=== PATIENT | female | born 1965 | race African-American/Black ===

== ENCOUNTER 2023-06-28 10:27 | Inpatient (IN) | payer OTHER ==
[2023-06-28 15:21] LABS: BASO % 0.5 % (0-2.0); HEMOGLOBIN 8.4 GM/dL (10.7-15.3); MCH 27.4 pg (25.7-33.7); MCHC 32.4 g/dl (32.0-36.0); MEAN CELL VOLUME 84.5 fl (80-96); MEAN PLT VOLUME 8.4 fl (7.5-11.1); MONO % 5.3 % (3.8-10.2); NEUT % 47.2 % (42.8-82.8); PLATELET COUNT 338 10^3/uL (134-434); RBC 3.08 M/mm3 (3.60-5.2); RDW 16.7 % (11.6-15.6); WHITE BLOOD COUNT 6.9 K/mm3 (4.0-10.0)
[2023-06-28 15:47] LABS: POTASSIUM 4.4 mmol/L (3.5-5.1)
[2023-06-28 15:50] LABS: ALBUMIN 3.3 g/dl (3.4-5.0); BLOOD UREA NITROGEN 12.1 mg/dL (7-18); CALCIUM 9.6 mg/dL (8.5-10.1); MAGNESIUM 1.8 mg/dL (1.8-2.4)
[2023-06-28 15:53] LABS: CREATININE 0.7 mg/dL (0.55-1.3)
[2023-06-28 15:55] LABS: BILIRUBIN,TOTAL 0.6 mg/dL (0.2-1); TOT PROT 8.8 g/dl (6.4-8.2)
[2023-06-28 18:04] LABS: EPI CELLS 2 /uL (0-25.1); HYALINE CASTS 9 /uL (0-3.1); PH,URINE 5.5 (5.0-8.0); URINE APPEARANCE TURBID; URINE BACTERIA >9,000 /uL (0-1359); URINE BILIRUBIN 1+ (NEGATIVE); URINE COLOR RED; URINE GLUCOSE (UA) NEGATIVE (NEGATIVE); URINE KETONE NEGATIVE (NEGATIVE); URINE LEUK ESTERASE 2+ (NEGATIVE); URINE NITRITE POSITIVE (NEGATIVE); URINE PROTEIN 1+ (NEGATIVE); URINE RBC 388 /uL (0-23.9); URINE WBC 3 /uL (0-25.8)
[2023-06-28] MEDS ORDERED: ACETAMINOPHEN 325 MG TABLET (FP) PO PRN (18:23)
[2023-06-28] MEDS ORDERED: CEFTRIAXONE 1 GM/50 ML BAG ONE (19:05)
[2023-06-28] MEDS ORDERED: MELATONIN 5 MG TABLETS ONE (22:56)
[2023-06-28] MEDS ORDERED: SENNOSIDES 8.6MG TABLET (FP) PO ONE (22:56)
[2023-06-28] MEDS ORDERED: FAMOTIDINE 20 MG TABLET ONE (22:56)
[2023-06-28] MEDS ORDERED: DULoxetine HCL 30 MG CAPSULE.DR PO ONE (22:57)
[2023-06-28] MEDS ORDERED: GABAPENTIN 300 MG CAPSULE ONE (22:57)
[2023-06-28] MEDS: FAMOTIDINE 20 MG TABLET PO SCH (23:11)
[2023-06-28] MEDS: VALPROIC ACID 250 MG CAPSULE PO SCH (23:11)
[2023-06-28] MEDS: DULoxetine HCL 30 MG CAPSULE.DR PO SCH (23:11)
[2023-06-28] MEDS: MELATONIN 5 MG TABLETS PO SCH (23:11)
[2023-06-28] MEDS: GABAPENTIN 300 MG CAPSULE PO SCH (23:11)
[2023-06-28] MEDS: SENNOSIDES 8.6MG TABLET (FP) PO SCH (23:12)
[2023-06-28] MEDS: LABETALOL HCL 200 MG TABLET (FP) PO SCH (23:12)
[2023-06-29] MEDS ORDERED: GABAPENTIN 300 MG CAPSULE ONE ×2 (05:44→22:28)
[2023-06-29 07:14] LABS: BASO % 0.3 % (0-2.0); HEMATOCRIT 25.3 % (32.4-45.2); LYMPH % 40.6 % (8-40); MCHC 31.7 g/dl (32.0-36.0); MEAN CELL VOLUME 85.2 fl (80-96); MEAN PLT VOLUME 8.7 fl (7.5-11.1); NEUT % 53.1 % (42.8-82.8); PLATELET COUNT 299 10^3/uL (134-434); RBC 2.97 M/mm3 (3.60-5.2); RDW 16.5 % (11.6-15.6); RETICULOCYTES 1.78 % (0.5-1.5); WHITE BLOOD COUNT 6.7 K/mm3 (4.0-10.0)
[2023-06-29 07:29] LABS: POTASSIUM 3.9 mmol/L (3.5-5.1)
[2023-06-29 07:33] LABS: CALCIUM 8.6 mg/dL (8.5-10.1)
[2023-06-29 07:34] LABS: ALBUMIN 2.9 g/dl (3.4-5.0); BLOOD UREA NITROGEN 12.2 mg/dL (7-18); MAGNESIUM 1.6 mg/dL (1.8-2.4)
[2023-06-29 07:36] LABS: CREATININE 0.7 mg/dL (0.55-1.3); PHOSPHOROUS 3.9 mg/dL (2.5-4.9)
[2023-06-29 07:38] LABS: BILIRUBIN,TOTAL 0.2 mg/dL (0.2-1); TOT PROT 7.9 g/dl (6.4-8.2)
[2023-06-29] MEDS: ASPIRIN 81 MG CHEWABLE TABLETS PO SCH (10:48)
[2023-06-29] MEDS: LOSARTAN POTASSIUM 25 MG TABLET PO SCH (10:49)
[2023-06-29] MEDS: amLODIPine BESYLATE 10 MG TABLET (FP) PO SCH (10:49)
[2023-06-29] MEDS: METHIMAZOLE 5 MG TABLET PO SCH (10:50)
[2023-06-29] MEDS: CALCIUM 500MG/VIT-D 200 UNITS COMBO TABLET (FP) PO SCH (10:50)
[2023-06-29] MEDS: POLYETHYLENE GLYCOL (HEALTHYLAX) 3350 17 GM PACKET PO SCH (10:51)
[2023-06-29] MEDS ORDERED: POLYETHYLENE GLYCOL (HEALTHYLAX) 3350 17 GM PACKET ONE (10:51)
[2023-06-29] MEDS: SELENIUM SULFIDE 2.25% 180 ML SHAMPOO TP SCH (12:39)
[2023-06-29] MEDS: SEVELAMER CARBONATE 800 MG TAB (FP) PO SCH (12:40)
[2023-06-29] MEDS ORDERED: CEFTRIAXONE 1 GM/50 ML BAG ONE (15:55)
[2023-06-29] MEDS: CEFTRIAXONE 1 GM in DEXTROSE 5%-WATER - 50 ML IVPB SCH (15:55)
[2023-06-29] MEDS ORDERED: SENNOSIDES 8.6MG TABLET (FP) PO ONE (22:27)
[2023-06-29] MEDS ORDERED: FAMOTIDINE 20 MG TABLET ONE (22:27)
[2023-06-29] MEDS ORDERED: LABETALOL HCL 200 MG TABLET (FP) ONE (22:28)
[2023-06-29] MEDS ORDERED: MELATONIN 5 MG TABLETS ONE (22:28)
[2023-06-29] MEDS ORDERED: DULoxetine HCL 30 MG CAPSULE.DR PO ONE (22:28)
[2023-06-29] MEDS ORDERED: DIVALPROEX SODIUM 250 MG TABLET E.C. ONE (22:28)
[2023-06-30 07:41] LABS: CHOLESTEROL 171 mg/dL (50-200)
[2023-06-30 07:42] LABS: LDL CHOLESTEROL (ONLY SJRH) 88 mg/dL (5-100)
[2023-06-30 07:52] LABS: HDL CHOLESTEROL 61 mg/dL (40-60)
[2023-06-30] MEDS: MAGNESIUM 2GM/50ML STERILE WATER IVPB IVPB ONE (09:36)
[2023-06-30 12:41] LABS: HEMATOCRIT 23.5 % (32.4-45.2); HEMOGLOBIN 7.6 GM/dL (10.7-15.3); MCH 27.1 pg (25.7-33.7); MCHC 32.4 g/dl (32.0-36.0); MEAN CELL VOLUME 83.7 fl (80-96); MEAN PLT VOLUME 8.7 fl (7.5-11.1); PLATELET COUNT 279 10^3/uL (134-434); RBC 2.81 M/mm3 (3.60-5.2); RDW 16.5 % (11.6-15.6); WHITE BLOOD COUNT 4.9 K/mm3 (4.0-10.0)
[2023-06-30 13:02] LABS: POTASSIUM 4.2 mmol/L (3.5-5.1)
[2023-06-30 13:04] LABS: CALCIUM 9.2 mg/dL (8.5-10.1)
[2023-06-30 13:05] LABS: ALBUMIN 2.9 g/dl (3.4-5.0)
[2023-06-30 13:08] LABS: CREATININE 0.7 mg/dL (0.55-1.3)
[2023-06-30 13:09] LABS: BILIRUBIN,TOTAL 0.2 mg/dL (0.2-1)
[2023-06-30 13:10] LABS: TOT PROT 7.8 g/dl (6.4-8.2)
[2023-06-30] MEDS ORDERED: ACETAMINOPHEN 325 MG TABLET (FP) PO PRN (21:00)
[2023-06-30] MEDS: DULoxetine HCL 30 MG CAPSULE.DR PO SCH (21:45)
[2023-06-30] MEDS: MELATONIN 5 MG TABLETS PO SCH (21:45)
[2023-06-30] MEDS: GABAPENTIN 300 MG CAPSULE PO SCH (21:45)
[2023-06-30] MEDS: LABETALOL HCL 200 MG TABLET (FP) PO SCH (21:46)
[2023-06-30] MEDS: FAMOTIDINE 20 MG TABLET PO SCH (21:46)
[2023-06-30] MEDS: SENNOSIDES 8.6MG TABLET (FP) PO SCH (21:46)
[2023-06-30] MEDS: VALPROIC ACID 250 MG CAPSULE PO SCH (22:15)
[2023-07-01] MEDS: SEVELAMER CARBONATE 800 MG TAB (FP) PO SCH (09:04)
[2023-07-01 09:57] LABS: HEMATOCRIT 23.7 % (32.4-45.2); HEMOGLOBIN 7.6 GM/dL (10.7-15.3); MCH 27.2 pg (25.7-33.7); MCHC 32.2 g/dl (32.0-36.0); MEAN CELL VOLUME 84.4 fl (80-96); MEAN PLT VOLUME 8.9 fl (7.5-11.1); PLATELET COUNT 246 10^3/uL (134-434); RBC 2.81 M/mm3 (3.60-5.2); RDW 16.4 % (11.6-15.6)
[2023-07-01 10:19] LABS: POTASSIUM 4.1 mmol/L (3.5-5.1)
[2023-07-01 10:34] LABS: CALCIUM 9.6 mg/dL (8.5-10.1)
[2023-07-01 10:38] LABS: CREATININE 0.8 mg/dL (0.55-1.3)
[2023-07-01 10:40] LABS: BILIRUBIN,TOTAL 0.4 mg/dL (0.2-1)
[2023-07-01] MEDS: POLYETHYLENE GLYCOL (HEALTHYLAX) 3350 17 GM PACKET PO SCH (11:28)
[2023-07-01] MEDS: METHIMAZOLE 5 MG TABLET PO SCH (11:29)
[2023-07-01] MEDS: LOSARTAN POTASSIUM 25 MG TABLET PO SCH (11:29)
[2023-07-01] MEDS: ASPIRIN 81 MG CHEWABLE TABLETS PO SCH (11:29)
[2023-07-01] MEDS: CALCIUM 500MG/VIT-D 200 UNITS COMBO TABLET (FP) PO SCH (11:29)
[2023-07-01] MEDS: amLODIPine BESYLATE 10 MG TABLET (FP) PO SCH (11:29)
[2023-07-01] MEDS: CEFTRIAXONE 1 GM in DEXTROSE 5%-WATER - 50 ML IVPB SCH (13:47)
[2023-07-02 10:08] LABS: HEMATOCRIT 22.6 % (32.4-45.2); HEMOGLOBIN 7.3 GM/dL (10.7-15.3); MCH 26.9 pg (25.7-33.7); MCHC 32.3 g/dl (32.0-36.0); MEAN CELL VOLUME 83.4 fl (80-96); MEAN PLT VOLUME 8.8 fl (7.5-11.1); PLATELET COUNT 224 10^3/uL (134-434); RBC 2.71 M/mm3 (3.60-5.2); RDW 16.8 % (11.6-15.6); WHITE BLOOD COUNT 4.6 K/mm3 (4.0-10.0)
[2023-07-02 10:20] LABS: BLOOD UREA NITROGEN 15.1 mg/dL (7-18); CALCIUM 8.7 mg/dL (8.5-10.1)
[2023-07-02 10:23] LABS: CREATININE 0.7 mg/dL (0.55-1.3)
[2023-07-03 07:50] LABS: HEMOGLOBIN 7.2 GM/dL (10.7-15.3); MCHC 32.9 g/dl (32.0-36.0); MEAN CELL VOLUME 85.3 fl (80-96); MEAN PLT VOLUME 8.9 fl (7.5-11.1); PLATELET COUNT 215 10^3/uL (134-434); RBC 2.58 M/mm3 (3.60-5.2); RDW 16.5 % (11.6-15.6)
[2023-07-03 08:10] LABS: BLOOD UREA NITROGEN 12.7 mg/dL (7-18); CALCIUM 8.6 mg/dL (8.5-10.1)
[2023-07-03 08:14] LABS: CREATININE 0.8 mg/dL (0.55-1.3)
[2023-07-03] MEDS ORDERED: BISACODYL 10 MG SUPP.RECT PR PRN (11:53)
[2023-07-03] MEDS: BISACODYL 10 MG SUPP.RECT PR ONE (17:28)
[2023-07-04 09:34] LABS: HEMATOCRIT 23.6 % (32.4-45.2); HEMOGLOBIN 7.6 GM/dL (10.7-15.3); MCH 27.5 pg (25.7-33.7); MCHC 32.1 g/dl (32.0-36.0); MEAN CELL VOLUME 85.5 fl (80-96); MEAN PLT VOLUME 9.3 fl (7.5-11.1); PLATELET COUNT 225 10^3/uL (134-434); RBC 2.76 M/mm3 (3.60-5.2); RDW 16.8 % (11.6-15.6); WHITE BLOOD COUNT 5.6 K/mm3 (4.0-10.0)
[2023-07-04] MEDS: LACTATED RINGERS SOLUTION 1,000 ML/1,000 ML INFUS.BAG IV SCH (09:39)
[2023-07-04 11:56] LABS: POTASSIUM 4.1 mmol/L (3.5-5.1)
[2023-07-04 11:59] LABS: BLOOD UREA NITROGEN 14.4 mg/dL (7-18)
[2023-07-04 12:02] LABS: CREATININE 0.8 mg/dL (0.55-1.3)
[2023-07-05] MEDS ORDERED: PROPOFOL 40 ML ONE (08:58)
[2023-07-05] MEDS: ceFAZolin SODIUM 1 GM VIAL IVPB ONE (09:09)
[2023-07-05] MEDS: IOHEXOL 300 MG/ML INFUS..BTL IV ONE ×2 (09:10)
[2023-07-05] MEDS ORDERED: ONDANSETRON 4 MG/2 ML VIAL IVPUSH PRN (09:26)
[2023-07-05] MEDS ORDERED: LACTATED RINGERS SOLUTION 1,000 ML IV SCH (09:30)
[2023-07-05] MEDS ORDERED: ACETAMINOPHEN 325 MG TABLET (FP) PO PRN (09:43)
[2023-07-05] MEDS ORDERED: BISACODYL 10 MG SUPP.RECT PR PRN (09:43)
[2023-07-05] MEDS: CEFTRIAXONE 1 GM in DEXTROSE 5%-WATER - 50 ML IVPB SCH (10:00)
[2023-07-05] MEDS: cefTRIAXone SODIUM 1 GM VIAL IVPB ONE (10:00)
[2023-07-05] MEDS ORDERED: CEFTRIAXONE 1 GM in DEXTROSE 5%-WATER - 50 ML IVPB SCH (10:00)
[2023-07-05] MEDS: LACTATED RINGERS SOLUTION 1,000 ML/1,000 ML INFUS.BAG IV SCH (10:40)
[2023-07-05] MEDS: LOSARTAN POTASSIUM 25 MG TABLET PO SCH (11:12)
[2023-07-05] MEDS: DULoxetine HCL 30 MG CAPSULE.DR PO SCH (11:12)
[2023-07-05] MEDS: CALCIUM 500MG/VIT-D 200 UNITS COMBO TABLET (FP) PO SCH (11:12)
[2023-07-05] MEDS: LABETALOL HCL 200 MG TABLET (FP) PO SCH (11:12)
[2023-07-05] MEDS: VALPROIC ACID 250 MG CAPSULE PO SCH (11:13)
[2023-07-05] MEDS: FAMOTIDINE 20 MG TABLET PO SCH (11:13)
[2023-07-05] MEDS: POLYETHYLENE GLYCOL (HEALTHYLAX) 3350 17 GM PACKET PO SCH (11:13)
[2023-07-05] MEDS: amLODIPine BESYLATE 10 MG TABLET (FP) PO SCH (11:13)
[2023-07-05] MEDS: SEVELAMER CARBONATE 800 MG TAB (FP) PO SCH (11:14)
[2023-07-05] MEDS: METHIMAZOLE 5 MG TABLET PO SCH (11:14)
[2023-07-05 12:00] LABS: HEMATOCRIT 23.8 % (32.4-45.2); HEMOGLOBIN 7.8 GM/dL (10.7-15.3); MCH 27.8 pg (25.7-33.7); MCHC 32.8 g/dl (32.0-36.0); MEAN CELL VOLUME 84.6 fl (80-96); MEAN PLT VOLUME 8.9 fl (7.5-11.1); PLATELET COUNT 225 10^3/uL (134-434); RBC 2.81 M/mm3 (3.60-5.2)
[2023-07-05 12:06] LABS: WHITE BLOOD COUNT 7.9 K/mm3 (4.0-10.0)
[2023-07-05 12:29] LABS: ANISOCYTOSIS 2+; MACROCYTOSIS 0
[2023-07-05 13:07] LABS: POTASSIUM 4.8 mmol/L (3.5-5.1)
[2023-07-05 13:09] LABS: BLOOD UREA NITROGEN 12.6 mg/dL (7-18); CALCIUM 9.3 mg/dL (8.5-10.1)
[2023-07-05 13:12] LABS: CREATININE 0.8 mg/dL (0.55-1.3)
[2023-07-05] MEDS: GABAPENTIN 300 MG CAPSULE PO SCH (14:14)
[2023-07-05] MEDS: MELATONIN 5 MG TABLETS PO SCH (22:04)
[2023-07-05] MEDS: SENNOSIDES 8.6MG TABLET (FP) PO SCH (22:04)
[2023-07-06 08:40] LABS: BASO % 0.1 % (0-2.0); HEMATOCRIT 22.6 % (32.4-45.2); HEMOGLOBIN 7.2 GM/dL (10.7-15.3); MCH 27.2 pg (25.7-33.7); MCHC 31.9 g/dl (32.0-36.0); MEAN CELL VOLUME 85.1 fl (80-96); MONO % 4.3 % (3.8-10.2); NEUT % 48.6 % (42.8-82.8); PLATELET COUNT 207 10^3/uL (134-434); RBC 2.66 M/mm3 (3.60-5.2); RDW 16.8 % (11.6-15.6); WHITE BLOOD COUNT 5.9 K/mm3 (4.0-10.0)
[2023-07-06 08:55] LABS: POTASSIUM 3.9 mmol/L (3.5-5.1)
[2023-07-06 09:00] LABS: ALBUMIN 3.1 g/dl (3.4-5.0)
[2023-07-06 09:01] LABS: BLOOD UREA NITROGEN 13.6 mg/dL (7-18); MAGNESIUM 1.8 mg/dL (1.8-2.4)
[2023-07-06 09:05] LABS: BILIRUBIN,TOTAL 0.2 mg/dL (0.2-1); CREATININE 0.7 mg/dL (0.55-1.3); TOT PROT 7.8 g/dl (6.4-8.2)
[2023-07-06] MEDS ORDERED: SELENIUM SULFIDE 2.25% 180 ML SHAMPOO TP SCH (10:00)
[2023-07-06] MEDS: ENOXAPARIN NA (PORCINE) 30 MG/0.3 ML DISP.SYRIN SQ SCH (10:56)
[2023-07-06] MEDS: PANTOPRAZOLE 40 MG TABLET PO SCH (10:57)
[2023-07-06] MEDS: ASPIRIN 81 MG CHEWABLE TABLETS PO SCH (10:57)
[2023-07-06] MEDS: SODIUM CHLORIDE 1,000 ML IV STA (16:01)
[2023-07-06] MEDS: CEFUROXIME AXETIL 500 MG TABLET PO SCH (16:02)
[2023-07-06] MEDS: FERROUS SO4 325 MG TABLET (FP) PO SCH (16:02)
[2023-07-06 16:27] LABS: BASO % 0.3 % (0-2.0); HEMATOCRIT 21.6 % (32.4-45.2); LYMPH % 53.2 % (8-40); MCH 27.7 pg (25.7-33.7); MCHC 32.5 g/dl (32.0-36.0); MEAN CELL VOLUME 85.2 fl (80-96); MEAN PLT VOLUME 8.8 fl (7.5-11.1); MONO % 6.6 % (3.8-10.2); NEUT % 39.9 % (42.8-82.8); PLATELET COUNT 199 10^3/uL (134-434); RBC 2.54 M/mm3 (3.60-5.2); RDW 16.7 % (11.6-15.6)
[2023-07-06] MEDS: SELENIUM SULFIDE 2.25% 180 ML SHAMPOO TP SCH (17:23)
[2023-07-07 10:18] LABS: BASO % 0.1 % (0-2.0); HEMATOCRIT 22.3 % (32.4-45.2); HEMOGLOBIN 7.1 GM/dL (10.7-15.3); LYMPH % 53.8 % (8-40); MCH 27.4 pg (25.7-33.7); MEAN CELL VOLUME 85.8 fl (80-96); MONO % 7.2 % (3.8-10.2); NEUT % 38.9 % (42.8-82.8); PLATELET COUNT 158 10^3/uL (134-434); RDW 17.1 % (11.6-15.6); WHITE BLOOD COUNT 5.6 K/mm3 (4.0-10.0)
[2023-07-07 10:31] LABS: POTASSIUM 3.8 mmol/L (3.5-5.1)
[2023-07-07 10:42] LABS: BLOOD UREA NITROGEN 11.6 mg/dL (7-18); MAGNESIUM 1.6 mg/dL (1.8-2.4)
[2023-07-07 10:45] LABS: CREATININE 0.7 mg/dL (0.55-1.3)
[2023-07-07 10:46] LABS: BILIRUBIN,TOTAL 0.2 mg/dL (0.2-1); TOT PROT 7.4 g/dl (6.4-8.2)
[2023-07-07] MEDS ORDERED: DEXTROSE 50%-WATER 25 GM/50 ML DISP.SYRIN ONE (10:46)
[2023-07-07] MEDS ORDERED: DEXTROSE 50%-WATER - 25 GM/50 ML VIAL IVPUSH ONE (11:00)
[2023-07-07 11:29] LABS: ARTERIAL BLD GAS O2 SATURATION 98.8 % (95-98); ARTERIAL BLOOD GAS BASE EXCESS 4.7 mmol/L (-2-2); ARTERIAL BLOOD GAS pH 7.452 (7.350-7.450)
[2023-07-07 11:30] LABS: ALLENS TEST POSITIVE
[2023-07-07] MEDS: MAGNESIUM SULFATE IN WATER 2 GM/50 ML IVPB IVPB ONE (12:58)
[2023-07-07] MEDS: ENOXAPARIN NA (PORCINE) 40 MG/0.4 ML DISP.SYRIN SQ SCH (14:08)
[2023-07-07] MEDS: ATORVASTATIN CA 80 MG TABLET (FP) PO ONE (14:09)
[2023-07-07] MEDS ORDERED: BISACODYL 10 MG SUPP.RECT PR PRN (15:22)
[2023-07-07] MEDS: LACTATED RINGERS SOLUTION 1,000 ML/1,000 ML INFUS.BAG IV SCH (18:08)
[2023-07-07] MEDS: levETIRAcetam 500 MG/5 ML INJECTION VIAL IVPB ONE (18:09)
[2023-07-07] MEDS: SEVELAMER CARBONATE 800 MG TAB (FP) PO SCH (18:09)
[2023-07-07] MEDS: MELATONIN 5 MG TABLETS PO SCH (21:51)
[2023-07-07] MEDS: LABETALOL HCL 200 MG TABLET (FP) PO SCH (21:51)
[2023-07-07] MEDS: SENNOSIDES 8.6MG TABLET (FP) PO SCH (21:51)
[2023-07-07] MEDS: DULoxetine HCL 30 MG CAPSULE.DR PO SCH (21:51)
[2023-07-07] MEDS: FAMOTIDINE 20 MG TABLET PO SCH (21:51)
[2023-07-07] MEDS: GABAPENTIN 300 MG CAPSULE PO SCH (21:52)
[2023-07-07] MEDS ORDERED: VALPROIC ACID 250 MG CAPSULE PO SCH (22:00)
[2023-07-07] MEDS ORDERED: ATORVASTATIN CA 80 MG TABLET (FP) PO SCH (22:00)
[2023-07-07 22:30] LABS: COCAINE, UR NEGATIVE (NEGATIVE); METHADONE, UR NEGATIVE (NEGATIVE); OPIATES, URI NEGATIVE (NEGATIVE); PHENCYCLIDINE,URINE NEGATIVE (NEGATIVE); URINE BENZODIAZEPINES NEGATIVE (NEGATIVE)
[2023-07-07 22:32] LABS: URINE AMPHETAMINES NEGATIVE (NEGATIVE); URINE BARBITURATES NEGATIVE (NEGATIVE)
[2023-07-08] MEDS: LOSARTAN POTASSIUM 25 MG TABLET PO SCH (10:09)
[2023-07-08] MEDS: amLODIPine BESYLATE 10 MG TABLET (FP) PO SCH (10:09)
[2023-07-08] MEDS: ASPIRIN 81 MG CHEWABLE TABLETS PO SCH (10:09)
[2023-07-08] MEDS: METHIMAZOLE 5 MG TABLET PO SCH (10:09)
[2023-07-08] MEDS: levETIRAcetam 250 MG TABLET PO SCH (10:09)
[2023-07-08] MEDS: FERROUS SO4 325 MG TABLET (FP) PO SCH (10:10)
[2023-07-08] MEDS: PANTOPRAZOLE 40 MG TABLET PO SCH (10:10)
[2023-07-08] MEDS: CALCIUM 500MG/VIT-D 200 UNITS COMBO TABLET (FP) PO SCH (10:10)
[2023-07-08 10:20] LABS: POTASSIUM 4.1 mmol/L (3.5-5.1)
[2023-07-08 10:28] LABS: BLOOD UREA NITROGEN 11.6 mg/dL (7-18); CALCIUM 9.6 mg/dL (8.5-10.1); MAGNESIUM 1.9 mg/dL (1.8-2.4)
[2023-07-08 10:29] LABS: BILIRUBIN,TOTAL 0.2 mg/dL (0.2-1)
[2023-07-08 10:30] LABS: BASO % 0.4 % (0-2.0); HEMATOCRIT 23.4 % (32.4-45.2); HEMOGLOBIN 7.6 GM/dL (10.7-15.3); LYMPH % 24.4 % (8-40); MCH 27.7 pg (25.7-33.7); MCHC 32.4 g/dl (32.0-36.0); MEAN CELL VOLUME 85.5 fl (80-96); MONO % 7.1 % (3.8-10.2); NEUT % 68.1 % (42.8-82.8); PLATELET COUNT 173 10^3/uL (134-434); RBC 2.74 M/mm3 (3.60-5.2); RDW 16.7 % (11.6-15.6); TOT PROT 7.5 g/dl (6.4-8.2); WHITE BLOOD COUNT 7.3 K/mm3 (4.0-10.0)
[2023-07-08 11:14] LABS: PLATELET ESTIMATE ADEQUATE
[2023-07-08] MEDS: POLYETHYLENE GLYCOL (HEALTHYLAX) 3350 17 GM PACKET PO SCH (13:00)
[2023-07-08] MEDS: ATORVASTATIN CA 40 MG TABLET (FP) PO SCH (21:48)
[2023-07-09 08:37] LABS: BASO % 0.4 % (0-2.0); HEMATOCRIT 22.6 % (32.4-45.2); HEMOGLOBIN 7.3 GM/dL (10.7-15.3); LYMPH % 50.9 % (8-40); MCH 27.6 pg (25.7-33.7); MCHC 32.3 g/dl (32.0-36.0); MEAN CELL VOLUME 85.3 fl (80-96); MEAN PLT VOLUME 9.2 fl (7.5-11.1); MONO % 8.3 % (3.8-10.2); NEUT % 40.4 % (42.8-82.8); PLATELET COUNT 194 10^3/uL (134-434); RBC 2.64 M/mm3 (3.60-5.2); RDW 17.2 % (11.6-15.6); WHITE BLOOD COUNT 6.4 K/mm3 (4.0-10.0)
[2023-07-09 09:01] LABS: POTASSIUM 3.6 mmol/L (3.5-5.1)
[2023-07-09 09:06] LABS: ALBUMIN 2.7 g/dl (3.4-5.0); BLOOD UREA NITROGEN 13.5 mg/dL (7-18); CALCIUM 8.9 mg/dL (8.5-10.1); MAGNESIUM 2.1 mg/dL (1.8-2.4)
[2023-07-09 09:09] LABS: CREATININE 1.5 mg/dL (0.55-1.3)
[2023-07-09 09:10] LABS: BILIRUBIN,TOTAL 0.4 mg/dL (0.2-1)
[2023-07-09] MEDS: GABAPENTIN 300 MG CAPSULE PO SCH (11:21)
[2023-07-09 21:23] LABS: URINE APPEARANCE CLOUDY; URINE BILIRUBIN 1+ (NEGATIVE); URINE COLOR RED; URINE GLUCOSE (UA) NEGATIVE (NEGATIVE); URINE KETONE NEGATIVE (NEGATIVE); URINE LEUK ESTERASE 2+ (NEGATIVE); URINE NITRITE POSITIVE (NEGATIVE); URINE PROTEIN 3+ (NEGATIVE); URINE UROBILINOGEN 0.2 mg/dL (0.2-1.0)
[2023-07-09 22:45] LABS: URINE WBC NONE SEEN /uL (0-25.8)
[2023-07-09 22:48] LABS: EPI CELLS NONE SEEN /uL (0-25.1); HYALINE CASTS NONE SEEN /uL (0-3.1); URINE BACTERIA NONE SEEN /uL (0-1359)
[2023-07-10 08:26] LABS: BASO % 0.2 % (0-2.0); HEMATOCRIT 17.3 % (32.4-45.2); LYMPH % 55.5 % (8-40); MCH 27.3 pg (25.7-33.7); MCHC 32.4 g/dl (32.0-36.0); MEAN CELL VOLUME 84.3 fl (80-96); MEAN PLT VOLUME 9.2 fl (7.5-11.1); MONO % 6.9 % (3.8-10.2); NEUT % 37.4 % (42.8-82.8); PLATELET COUNT 158 10^3/uL (134-434); RBC 2.05 M/mm3 (3.60-5.2); RDW 16.8 % (11.6-15.6); WHITE BLOOD COUNT 5.4 K/mm3 (4.0-10.0)
[2023-07-10 08:50] LABS: HEMOGLOBIN 5.6 GM/dL (10.7-15.3)
[2023-07-10] MEDS: MAGNESIUM OXIDE 400 MG TABLET (FP) PO ONE (10:04)
[2023-07-10 10:32] LABS: BASO % 0.2 % (0-2.0); HEMATOCRIT 18.1 % (32.4-45.2); LYMPH % 48.8 % (8-40); MCH 27.7 pg (25.7-33.7); MCHC 32.3 g/dl (32.0-36.0); MEAN CELL VOLUME 85.8 fl (80-96); MEAN PLT VOLUME 9.3 fl (7.5-11.1); MONO % 7.8 % (3.8-10.2); NEUT % 43.2 % (42.8-82.8); PLATELET COUNT 170 10^3/uL (134-434); RBC 2.11 M/mm3 (3.60-5.2); RDW 16.7 % (11.6-15.6); WHITE BLOOD COUNT 5.1 K/mm3 (4.0-10.0)
[2023-07-10 10:39] LABS: HEMOGLOBIN 5.8 GM/dL (10.7-15.3)
[2023-07-10] MEDS: LACTATED RINGERS SOLUTION 1,000 ML/1,000 ML INFUS.BAG IV STA (12:06)
[2023-07-10] MEDS: PANTOPRAZOLE SODIUM 40 MG VIAL IVPUSH SCH (12:36)
[2023-07-10] MEDS: LACTATED RINGERS SOLUTION 1,000 ML/1,000 ML INFUS.BAG IV SCH (17:59)
[2023-07-10 21:05] LABS: BASO % 0.2 % (0-2.0); EOS % 0.1 % (0-4.5); HEMOGLOBIN 8.6 GM/dL (10.7-15.3); LYMPH % 42.5 % (8-40); MCH 28.2 pg (25.7-33.7); MCHC 32.6 g/dl (32.0-36.0); MEAN CELL VOLUME 86.3 fl (80-96); MEAN PLT VOLUME 8.8 fl (7.5-11.1); NEUT % 47.2 % (42.8-82.8); PLATELET COUNT 154 10^3/uL (134-434); RBC 3.05 M/mm3 (3.60-5.2); RDW 15.5 % (11.6-15.6); WHITE BLOOD COUNT 7.1 K/mm3 (4.0-10.0)
[2023-07-10 21:16] LABS: HEMATOCRIT 26.3 % (32.4-45.2)
[2023-07-11 07:42] LABS: POTASSIUM 3.8 mmol/L (3.5-5.1)
[2023-07-11 07:48] LABS: BASO % 0.1 % (0-2.0); HEMATOCRIT 22.6 % (32.4-45.2); HEMOGLOBIN 7.5 GM/dL (10.7-15.3); LYMPH % 51.2 % (8-40); MCH 28.2 pg (25.7-33.7); MCHC 33.2 g/dl (32.0-36.0); MEAN CELL VOLUME 84.8 fl (80-96); MEAN PLT VOLUME 9.2 fl (7.5-11.1); MONO % 7.8 % (3.8-10.2); NEUT % 40.9 % (42.8-82.8); PLATELET COUNT 152 10^3/uL (134-434); RBC 2.66 M/mm3 (3.60-5.2); RDW 15.3 % (11.6-15.6); WHITE BLOOD COUNT 5.3 K/mm3 (4.0-10.0)
[2023-07-11 07:56] LABS: BLOOD UREA NITROGEN 10.9 mg/dL (7-18)
[2023-07-11 07:57] LABS: ALBUMIN 2.9 g/dl (3.4-5.0); MAGNESIUM 1.6 mg/dL (1.8-2.4)
[2023-07-11 07:59] LABS: CREATININE 0.9 mg/dL (0.55-1.3)
[2023-07-11 08:01] LABS: BILIRUBIN,TOTAL 0.6 mg/dL (0.2-1); TOT PROT 6.9 g/dl (6.4-8.2)
[2023-07-11] MEDS: LACTATED RINGERS SOLUTION 1,000 ML/1,000 ML INFUS.BAG IV SCH (09:24)
[2023-07-11] MEDS: CEFTRIAXONE 1 GM in DEXTROSE 5%-WATER - 50 ML IVPB ONE (10:18)
[2023-07-11] MEDS: PIPERACILLIN/TAZOB 2.25 GM 2.25 GM in DEXTROSE 5%-WATER - 50 ML IVPB SCH ×2 (13:00)
[2023-07-11 13:13] LABS: BASO % 0.1 % (0-2.0); HEMATOCRIT 23.3 % (32.4-45.2); HEMOGLOBIN 7.8 GM/dL (10.7-15.3); LYMPH % 37.8 % (8-40); MCH 28.8 pg (25.7-33.7); MCHC 33.6 g/dl (32.0-36.0); MEAN CELL VOLUME 85.5 fl (80-96); MONO % 8.4 % (3.8-10.2); NEUT % 53.7 % (42.8-82.8); PLATELET COUNT 153 10^3/uL (134-434); RBC 2.73 M/mm3 (3.60-5.2); RDW 15.4 % (11.6-15.6); WHITE BLOOD COUNT 5.5 K/mm3 (4.0-10.0)
[2023-07-11] MEDS: MAGNESIUM SULFATE IN WATER 2 GM/50 ML IVPB IVPB ONE (14:50)
[2023-07-11] MEDS ORDERED: PIPERACILLIN/TAZOB 3.375 GM 3.375 GM in DEXTROSE 5%-WATER - 50 ML IVPB SCH ×2 (15:00→15:30)
[2023-07-11] MEDS: PIPERACILLIN/TAZOB 3.375 GM 3.375 GM in DEXTROSE 5%-WATER - 50 ML IVPB SCH ×2 (16:08→17:34)
[2023-07-11] MEDS: GABAPENTIN 300 MG CAPSULE PO ONE (21:23)
[2023-07-12 09:28] LABS: BASO % 0.3 % (0-2.0); HEMATOCRIT 23.6 % (32.4-45.2); HEMOGLOBIN 7.9 GM/dL (10.7-15.3); LYMPH % 32.2 % (8-40); MCH 28.6 pg (25.7-33.7); MCHC 33.5 g/dl (32.0-36.0); MEAN CELL VOLUME 85.5 fl (80-96); MEAN PLT VOLUME 8.9 fl (7.5-11.1); MONO % 8.1 % (3.8-10.2); NEUT % 59.4 % (42.8-82.8); PLATELET COUNT 172 10^3/uL (134-434); RBC 2.76 M/mm3 (3.60-5.2); RDW 15.1 % (11.6-15.6); WHITE BLOOD COUNT 5.9 K/mm3 (4.0-10.0)
[2023-07-12 09:47] LABS: POTASSIUM 3.8 mmol/L (3.5-5.1)
[2023-07-12 09:49] LABS: ALBUMIN 2.9 g/dl (3.4-5.0); CALCIUM 8.6 mg/dL (8.5-10.1)
[2023-07-12 09:50] LABS: BLOOD UREA NITROGEN 11.8 mg/dL (7-18); MAGNESIUM 2.3 mg/dL (1.8-2.4)
[2023-07-12 09:53] LABS: CREATININE 1.1 mg/dL (0.55-1.3)
[2023-07-12 09:54] LABS: BILIRUBIN,TOTAL 0.5 mg/dL (0.2-1); TOT PROT 7.2 g/dl (6.4-8.2)
[2023-07-12] MEDS: GABAPENTIN 100 MG CAPSULE PO SCH (09:58)
[2023-07-12] MEDS: LINEZOLID 600 MG PREMIX BAG 600 MG in PREMIX 300 IVPB SCH (16:30)
[2023-07-12] MEDS: LINEZOLID 600 MG PREMIX BAG 600 MG/300 ML BAG IVPB SCH ×2 (16:31)
[2023-07-12] MEDS: DAPTOMYCIN 500 MG in SODIUM CHLORIDE 50 ML IVPB SCH (17:42)
[2023-07-13] MEDS: LACTATED RINGERS SOLUTION 1,000 ML/1,000 ML INFUS.BAG IV SCH (09:15)
[2023-07-13 09:55] LABS: BASO % 0.3 % (0-2.0); HEMATOCRIT 20.6 % (32.4-45.2); LYMPH % 49.6 % (8-40); MCH 28.4 pg (25.7-33.7); MCHC 32.9 g/dl (32.0-36.0); MEAN CELL VOLUME 86.2 fl (80-96); NEUT % 42.1 % (42.8-82.8); PLATELET COUNT 183 10^3/uL (134-434); RBC 2.39 M/mm3 (3.60-5.2); RDW 15.3 % (11.6-15.6); WHITE BLOOD COUNT 4.7 K/mm3 (4.0-10.0)
[2023-07-13 10:06] LABS: HEMOGLOBIN 6.8 GM/dL (10.7-15.3)
[2023-07-13 10:20] LABS: POTASSIUM 3.7 mmol/L (3.5-5.1)
[2023-07-13 10:22] LABS: CALCIUM 8.4 mg/dL (8.5-10.1)
[2023-07-13 10:23] LABS: BLOOD UREA NITROGEN 10.7 mg/dL (7-18)
[2023-07-13] MEDS: FUROSEMIDE 40 MG/4 ML INJECTABLE VIAL IVPUSH ONE (10:44)
[2023-07-13] MEDS: SELENIUM SULFIDE 2.25% 180 ML SHAMPOO TP SCH (13:09)
[2023-07-13 20:53] LABS: HEMOGLOBIN 8.6 GM/dL (10.7-15.3); MCH 28.9 pg (25.7-33.7); MCHC 33.8 g/dl (32.0-36.0); MEAN CELL VOLUME 85.5 fl (80-96); MEAN PLT VOLUME 8.6 fl (7.5-11.1); PLATELET COUNT 207 10^3/uL (134-434); RBC 2.97 M/mm3 (3.60-5.2); RDW 15.4 % (11.6-15.6); WHITE BLOOD COUNT 5.7 K/mm3 (4.0-10.0)
[2023-07-13 21:05] LABS: HEMATOCRIT 25.4 % (32.4-45.2)
[2023-07-14 08:13] LABS: BASO % 0.3 % (0-2.0); HEMATOCRIT 28.6 % (32.4-45.2); HEMOGLOBIN 9.5 GM/dL (10.7-15.3); LYMPH % 52.5 % (8-40); MCH 28.5 pg (25.7-33.7); MCHC 33.1 g/dl (32.0-36.0); MEAN CELL VOLUME 86.1 fl (80-96); MEAN PLT VOLUME 9.1 fl (7.5-11.1); MONO % 9.8 % (3.8-10.2); NEUT % 37.4 % (42.8-82.8); PLATELET COUNT 192 10^3/uL (134-434); RBC 3.33 M/mm3 (3.60-5.2); RDW 14.6 % (11.6-15.6); WHITE BLOOD COUNT 6.5 K/mm3 (4.0-10.0)
[2023-07-14 08:26] LABS: POTASSIUM 3.7 mmol/L (3.5-5.1)
[2023-07-14 08:28] LABS: CALCIUM 8.9 mg/dL (8.5-10.1)
[2023-07-14 08:29] LABS: BLOOD UREA NITROGEN 9.7 mg/dL (7-18)
[2023-07-14 08:32] LABS: CREATININE 0.9 mg/dL (0.55-1.3)
[2023-07-14] MEDS: PANTOPRAZOLE SODIUM 40 MG VIAL IVPUSH SCH (10:41)
[2023-07-15 07:42] LABS: POTASSIUM 3.6 mmol/L (3.5-5.1)
[2023-07-15 07:54] LABS: BASO % 0.1 % (0-2.0); HEMATOCRIT 26.6 % (32.4-45.2); HEMOGLOBIN 8.9 GM/dL (10.7-15.3); LYMPH % 47.5 % (8-40); MCH 28.7 pg (25.7-33.7); MCHC 33.5 g/dl (32.0-36.0); MEAN CELL VOLUME 85.8 fl (80-96); MEAN PLT VOLUME 9.2 fl (7.5-11.1); NEUT % 44.4 % (42.8-82.8); PLATELET COUNT 199 10^3/uL (134-434); RDW 14.6 % (11.6-15.6)
[2023-07-15 08:05] LABS: CALCIUM 8.9 mg/dL (8.5-10.1)
[2023-07-15 08:06] LABS: BLOOD UREA NITROGEN 8.7 mg/dL (7-18)
[2023-07-15 08:10] LABS: CREATININE 0.9 mg/dL (0.55-1.3)
[2023-07-15] MEDS: PANTOPRAZOLE 40 MG TABLET PO SCH (10:43)
[2023-07-15] MEDS: ACETAMINOPHEN 325 MG TABLET (FP) PO PRN (21:23)
[2023-07-15 23:08] VITALS: BMI 25.2
[2023-07-16 07:30] LABS: BASO % 0.3 % (0-2.0); HEMATOCRIT 27.4 % (32.4-45.2); HEMOGLOBIN 9.2 GM/dL (10.7-15.3); LYMPH % 54.6 % (8-40); MCH 28.8 pg (25.7-33.7); MCHC 33.5 g/dl (32.0-36.0); MEAN PLT VOLUME 8.8 fl (7.5-11.1); MONO % 7.6 % (3.8-10.2); NEUT % 37.5 % (42.8-82.8); PLATELET COUNT 216 10^3/uL (134-434); RBC 3.19 M/mm3 (3.60-5.2); RDW 14.8 % (11.6-15.6); WHITE BLOOD COUNT 5.7 K/mm3 (4.0-10.0)
[2023-07-16 07:38] LABS: BLOOD UREA NITROGEN 7.1 mg/dL (7-18)
[2023-07-16 07:42] LABS: CREATININE 0.9 mg/dL (0.55-1.3)
[2023-07-16] MEDS: MULTIVITAMINS (DAILY MVI) TABLET (FP) PO SCH (09:25)
[2023-07-16] MEDS: LACTATED RINGERS SOLUTION 1,000 ML/1,000 ML INFUS.BAG IV SCH (12:36)
[2023-07-17 08:24] LABS: BASO % 0.3 % (0-2.0); HEMATOCRIT 28.5 % (32.4-45.2); HEMOGLOBIN 9.5 GM/dL (10.7-15.3); LYMPH % 44.6 % (8-40); MCH 28.6 pg (25.7-33.7); MCHC 33.2 g/dl (32.0-36.0); MEAN CELL VOLUME 86.1 fl (80-96); MEAN PLT VOLUME 8.4 fl (7.5-11.1); NEUT % 48.1 % (42.8-82.8); PLATELET COUNT 229 10^3/uL (134-434); RBC 3.31 M/mm3 (3.60-5.2); RDW 14.7 % (11.6-15.6); WHITE BLOOD COUNT 5.3 K/mm3 (4.0-10.0)
[2023-07-17 08:35] LABS: POTASSIUM 3.7 mmol/L (3.5-5.1)
[2023-07-17 08:37] LABS: CALCIUM 8.9 mg/dL (8.5-10.1)
[2023-07-17 08:38] LABS: BLOOD UREA NITROGEN 5.8 mg/dL (7-18)
[2023-07-17 08:41] LABS: CREATININE 0.8 mg/dL (0.55-1.3)
[2023-07-17] MEDS: PANTOPRAZOLE 20 MG TABLET PO SCH (10:22)
[2023-07-18 09:14] LABS: CALCIUM 9.2 mg/dL (8.5-10.1)
[2023-07-18 09:15] LABS: BLOOD UREA NITROGEN 7.8 mg/dL (7-18)
[2023-07-18 09:18] LABS: CREATININE 0.8 mg/dL (0.55-1.3)
[2023-07-19 08:25] LABS: BASO % 0.2 % (0-2.0); HEMATOCRIT 28.8 % (32.4-45.2); HEMOGLOBIN 9.6 GM/dL (10.7-15.3); LYMPH % 32.7 % (8-40); MCHC 33.3 g/dl (32.0-36.0); MEAN PLT VOLUME 8.6 fl (7.5-11.1); MONO % 6.5 % (3.8-10.2); NEUT % 60.6 % (42.8-82.8); PLATELET COUNT 255 10^3/uL (134-434); RBC 3.32 M/mm3 (3.60-5.2); RDW 14.3 % (11.6-15.6); WHITE BLOOD COUNT 7.7 K/mm3 (4.0-10.0)
[2023-07-19 08:41] LABS: CALCIUM 9.1 mg/dL (8.5-10.1); POTASSIUM 4.1 mmol/L (3.5-5.1)
[2023-07-19 08:43] LABS: BLOOD UREA NITROGEN 10.3 mg/dL (7-18)
[2023-07-19 08:47] LABS: CREATININE 0.9 mg/dL (0.55-1.3)
[2023-07-19] MEDS: ENOXAPARIN NA (PORCINE) 40 MG/0.4 ML DISP.SYRIN SQ SCH (16:16)
[2023-07-20 09:51] LABS: INR 1.07 (0.83-1.09); PROTHROMBIN TIME (PATIENT) 12.4 SEC (9.7-13.0)
[2023-07-20 09:53] LABS: BASO % 0.2 % (0-2.0); CALCIUM 9.1 mg/dL (8.5-10.1); HEMATOCRIT 27.8 % (32.4-45.2); HEMOGLOBIN 9.4 GM/dL (10.7-15.3); LYMPH % 24.4 % (8-40); MCH 29.2 pg (25.7-33.7); MCHC 33.8 g/dl (32.0-36.0); MEAN CELL VOLUME 86.3 fl (80-96); MONO % 3.2 % (3.8-10.2); NEUT % 72.2 % (42.8-82.8); PLATELET COUNT 288 10^3/uL (134-434); RBC 3.22 M/mm3 (3.60-5.2); RDW 14.7 % (11.6-15.6); WHITE BLOOD COUNT 9.2 K/mm3 (4.0-10.0)
[2023-07-20 09:56] LABS: ALBUMIN 3.3 g/dl (3.4-5.0); BLOOD UREA NITROGEN 13.9 mg/dL (7-18); MAGNESIUM 1.8 mg/dL (1.8-2.4)
[2023-07-20 09:59] LABS: CREATININE 1.1 mg/dL (0.55-1.3)
[2023-07-20 10:00] LABS: BILIRUBIN,TOTAL 0.4 mg/dL (0.2-1); TOT PROT 7.6 g/dl (6.4-8.2)
[2023-07-20] MEDS: ACETAMINOPHEN 1000 MG/100 ML BAG IVPB PRN (12:17)
[2023-07-20] MEDS: LACTATED RINGERS SOLUTION 1,000 ML/1,000 ML INFUS.BAG IV SCH (12:20)
[2023-07-20] MEDS ORDERED: LIDOCAINE HCL/PF 2% SDV 5ML VIAL ONE (14:57)
[2023-07-20] MEDS ORDERED: PROPOFOL 20 ML ONE (14:58)
[2023-07-20] MEDS ORDERED: MIDAZOLAM HCL 2 MG/2 ML SINGLE DOSE VIAL ONE (14:58)
[2023-07-20] MEDS ORDERED: ONDANSETRON 4 MG/2 ML VIAL IVPUSH PRN (15:39)
[2023-07-20] MEDS ORDERED: PROMETHAZINE HCL 25 MG/1 ML VIAL IVPB PRN (15:39)
[2023-07-20] MEDS ORDERED: ACETAMINOPHEN 1000 MG/100 ML BAG IVPB PRN (16:19)
[2023-07-20] MEDS: LACTATED RINGERS SOLUTION 1,000 ML IV SCH (17:15)
[2023-07-20] MEDS: SEVELAMER CARBONATE 800 MG TAB (FP) PO SCH (17:38)
[2023-07-20] MEDS: DAPTOMYCIN 500 MG in SODIUM CHLORIDE 50 ML IVPB SCH (17:42)
[2023-07-20] MEDS: DULoxetine HCL 30 MG CAPSULE.DR PO SCH (21:51)
[2023-07-20] MEDS: levETIRAcetam 250 MG TABLET PO SCH (21:52)
[2023-07-20] MEDS: MELATONIN 5 MG TABLETS PO SCH (21:52)
[2023-07-20] MEDS: LABETALOL HCL 200 MG TABLET (FP) PO SCH (21:53)
[2023-07-20] MEDS: FAMOTIDINE 20 MG TABLET PO SCH (21:53)
[2023-07-20] MEDS: SENNOSIDES 8.6MG TABLET (FP) PO SCH (21:54)
[2023-07-21 09:05] LABS: BASO % 0.3 % (0-2.0); EOS % 0.1 % (0-4.5); HEMATOCRIT 24.5 % (32.4-45.2); HEMOGLOBIN 8.1 GM/dL (10.7-15.3); LYMPH % 30.5 % (8-40); MCHC 33.1 g/dl (32.0-36.0); MEAN CELL VOLUME 87.6 fl (80-96); MEAN PLT VOLUME 9.2 fl (7.5-11.1); MONO % 5.4 % (3.8-10.2); NEUT % 63.7 % (42.8-82.8); PLATELET COUNT 242 10^3/uL (134-434); RDW 14.2 % (11.6-15.6); WHITE BLOOD COUNT 7.7 K/mm3 (4.0-10.0)
[2023-07-21 09:18] LABS: POTASSIUM 3.8 mmol/L (3.5-5.1)
[2023-07-21] MEDS: ENOXAPARIN NA (PORCINE) 40 MG/0.4 ML DISP.SYRIN SQ SCH (10:15)
[2023-07-21] MEDS: LOSARTAN POTASSIUM 25 MG TABLET PO SCH (10:17)
[2023-07-21] MEDS: MULTIVITAMINS (DAILY MVI) TABLET (FP) PO SCH (10:17)
[2023-07-21] MEDS: METHIMAZOLE 5 MG TABLET PO SCH (10:17)
[2023-07-21] MEDS: amLODIPine BESYLATE 10 MG TABLET (FP) PO SCH (10:17)
[2023-07-21] MEDS: CALCIUM 500MG/VIT-D 200 UNITS COMBO TABLET (FP) PO SCH (10:17)
[2023-07-21] MEDS: ASPIRIN 81 MG CHEWABLE TABLETS PO SCH (10:17)
[2023-07-21] MEDS: PANTOPRAZOLE 20 MG TABLET PO SCH (10:18)
[2023-07-21] MEDS: POLYETHYLENE GLYCOL (HEALTHYLAX) 3350 17 GM PACKET PO SCH (10:18)
[2023-07-21 10:35] LABS: CALCIUM 8.7 mg/dL (8.5-10.1)
[2023-07-21 10:36] LABS: ALBUMIN 2.8 g/dl (3.4-5.0); BLOOD UREA NITROGEN 9.5 mg/dL (7-18); MAGNESIUM 1.6 mg/dL (1.8-2.4)
[2023-07-21 10:39] LABS: CREATININE 0.9 mg/dL (0.55-1.3)
[2023-07-21 10:40] LABS: BILIRUBIN,TOTAL 0.5 mg/dL (0.2-1)
[2023-07-21] MEDS: MAGNESIUM SULFATE IN WATER 2 GM/50 ML IVPB IVPB ONE (11:40)
[2023-07-22 09:08] LABS: BASO % 0.2 % (0-2.0); HEMATOCRIT 21.5 % (32.4-45.2); HEMOGLOBIN 7.2 GM/dL (10.7-15.3); LYMPH % 18.7 % (8-40); MCH 28.9 pg (25.7-33.7); MCHC 33.6 g/dl (32.0-36.0); MEAN CELL VOLUME 86.1 fl (80-96); MONO % 6.8 % (3.8-10.2); NEUT % 74.3 % (42.8-82.8); PLATELET COUNT 244 10^3/uL (134-434); RBC 2.49 M/mm3 (3.60-5.2); RDW 14.5 % (11.6-15.6); WHITE BLOOD COUNT 8.4 K/mm3 (4.0-10.0)
[2023-07-22 09:26] LABS: POTASSIUM 3.7 mmol/L (3.5-5.1)
[2023-07-22 09:33] LABS: BLOOD UREA NITROGEN 10.7 mg/dL (7-18); CALCIUM 8.6 mg/dL (8.5-10.1); MAGNESIUM 2.2 mg/dL (1.8-2.4)
[2023-07-22 09:34] LABS: CREATININE 1.3 mg/dL (0.55-1.3)
[2023-07-22 09:36] LABS: BILIRUBIN,TOTAL 0.4 mg/dL (0.2-1); TOT PROT 6.9 g/dl (6.4-8.2)
[2023-07-23 08:00] LABS: HEMATOCRIT 21.3 % (32.4-45.2); HEMOGLOBIN 7.2 GM/dL (10.7-15.3); MCH 28.7 pg (25.7-33.7); MCHC 33.6 g/dl (32.0-36.0); MEAN CELL VOLUME 85.4 fl (80-96); MEAN PLT VOLUME 9.3 fl (7.5-11.1); PLATELET COUNT 249 10^3/uL (134-434); RBC 2.49 M/mm3 (3.60-5.2); RDW 14.6 % (11.6-15.6); WHITE BLOOD COUNT 8.6 K/mm3 (4.0-10.0)
[2023-07-23 08:29] LABS: POTASSIUM 3.7 mmol/L (3.5-5.1)
[2023-07-23 08:40] LABS: ALBUMIN 2.8 g/dl (3.4-5.0); BLOOD UREA NITROGEN 13.4 mg/dL (7-18); CALCIUM 8.9 mg/dL (8.5-10.1); MAGNESIUM 1.9 mg/dL (1.8-2.4)
[2023-07-23 08:43] LABS: CREATININE 1.7 mg/dL (0.55-1.3)
[2023-07-23 08:45] LABS: BILIRUBIN,TOTAL 0.5 mg/dL (0.2-1)
[2023-07-23 16:29] LABS: BASO % 0.4 % (0-2.0); HEMATOCRIT 19.8 % (32.4-45.2); LYMPH % 27.3 % (8-40); MCH 28.5 pg (25.7-33.7); MCHC 33.4 g/dl (32.0-36.0); MEAN CELL VOLUME 85.3 fl (80-96); MEAN PLT VOLUME 9.2 fl (7.5-11.1); MONO % 8.3 % (3.8-10.2); PLATELET COUNT 247 10^3/uL (134-434); RBC 2.32 M/mm3 (3.60-5.2); RDW 14.3 % (11.6-15.6); WHITE BLOOD COUNT 8.1 K/mm3 (4.0-10.0)
[2023-07-23 16:37] LABS: HEMOGLOBIN 6.6 GM/dL (10.7-15.3)
[2023-07-23] MEDS: ACETAMINOPHEN 1000 MG/100 ML BAG IVPB SCH (21:00)
[2023-07-24 08:34] LABS: HEMATOCRIT 22.5 % (32.4-45.2); HEMOGLOBIN 7.6 GM/dL (10.7-15.3); MCHC 33.7 g/dl (32.0-36.0); MEAN CELL VOLUME 86.2 fl (80-96); MEAN PLT VOLUME 9.1 fl (7.5-11.1); PLATELET COUNT 225 10^3/uL (134-434); RBC 2.61 M/mm3 (3.60-5.2); RDW 14.1 % (11.6-15.6); WHITE BLOOD COUNT 8.4 K/mm3 (4.0-10.0)
[2023-07-24 08:49] LABS: POTASSIUM 3.9 mmol/L (3.5-5.1)
[2023-07-24 08:52] LABS: CALCIUM 8.8 mg/dL (8.5-10.1)
[2023-07-24 08:53] LABS: ALBUMIN 2.6 g/dl (3.4-5.0)
[2023-07-24 08:56] LABS: CREATININE 1.6 mg/dL (0.55-1.3)
[2023-07-24 08:58] LABS: BILIRUBIN,TOTAL 0.7 mg/dL (0.2-1)
[2023-07-24] MEDS: TAMSULOSIN HCL 0.4 MG CAP PO SCH (09:48)
[2023-07-24] MEDS: LACTATED RINGERS SOLUTION 1,000 ML/1,000 ML INFUS.BAG IV SCH (14:24)
[2023-07-25 09:15] LABS: HEMATOCRIT 21.7 % (32.4-45.2); HEMOGLOBIN 7.1 GM/dL (10.7-15.3); MCH 28.1 pg (25.7-33.7); MCHC 32.5 g/dl (32.0-36.0); MEAN CELL VOLUME 86.5 fl (80-96); MEAN PLT VOLUME 9.9 fl (7.5-11.1); PLATELET COUNT 257 10^3/uL (134-434); RBC 2.51 M/mm3 (3.60-5.2); RDW 14.5 % (11.6-15.6); WHITE BLOOD COUNT 10.8 K/mm3 (4.0-10.0)
[2023-07-25 10:17] LABS: POTASSIUM 4.3 mmol/L (3.5-5.1)
[2023-07-25 10:18] LABS: CALCIUM 8.6 mg/dL (8.5-10.1)
[2023-07-25 10:20] LABS: ALBUMIN 2.7 g/dl (3.4-5.0); BLOOD UREA NITROGEN 9.4 mg/dL (7-18)
[2023-07-25 10:23] LABS: BILIRUBIN,TOTAL 0.5 mg/dL (0.2-1); CREATININE 1.6 mg/dL (0.55-1.3); TOT PROT 6.7 g/dl (6.4-8.2)
[2023-07-26 08:44] LABS: BASO % 0.3 % (0-2.0); HEMATOCRIT 24.3 % (32.4-45.2); HEMOGLOBIN 8.5 GM/dL (10.7-15.3); LYMPH % 35.3 % (8-40); MCH 29.2 pg (25.7-33.7); MEAN CELL VOLUME 83.4 fl (80-96); MEAN PLT VOLUME 8.6 fl (7.5-11.1); MONO % 6.3 % (3.8-10.2); NEUT % 58.1 % (42.8-82.8); PLATELET COUNT 292 10^3/uL (134-434); RBC 2.92 M/mm3 (3.60-5.2); RDW 14.6 % (11.6-15.6); WHITE BLOOD COUNT 6.1 K/mm3 (4.0-10.0)
[2023-07-26 09:06] LABS: POTASSIUM 4.2 mmol/L (3.5-5.1)
[2023-07-26 09:11] LABS: CALCIUM 9.1 mg/dL (8.5-10.1)
[2023-07-26 09:12] LABS: ALBUMIN 2.6 g/dl (3.4-5.0); BLOOD UREA NITROGEN 9.3 mg/dL (7-18); MAGNESIUM 1.8 mg/dL (1.8-2.4)
[2023-07-26 09:15] LABS: CREATININE 1.3 mg/dL (0.55-1.3)
[2023-07-26 09:16] LABS: BILIRUBIN,TOTAL 0.5 mg/dL (0.2-1); TOT PROT 6.9 g/dl (6.4-8.2)
[2023-07-27 07:48] LABS: HEMATOCRIT 25.5 % (32.4-45.2); HEMOGLOBIN 8.6 GM/dL (10.7-15.3); MCH 28.5 pg (25.7-33.7); MCHC 33.6 g/dl (32.0-36.0); MEAN CELL VOLUME 84.7 fl (80-96); MEAN PLT VOLUME 8.7 fl (7.5-11.1); PLATELET COUNT 323 10^3/uL (134-434); RBC 3.01 M/mm3 (3.60-5.2); RDW 14.2 % (11.6-15.6); WHITE BLOOD COUNT 10.2 K/mm3 (4.0-10.0)
[2023-07-27 08:11] LABS: BLOOD UREA NITROGEN 10.5 mg/dL (7-18)
[2023-07-27 08:14] LABS: CREATININE 1.4 mg/dL (0.55-1.3)
[2023-07-27] MEDS: SELENIUM SULFIDE 2.25% 180 ML SHAMPOO TP SCH (10:58)
[2023-07-28 08:50] LABS: HEMATOCRIT 25.1 % (32.4-45.2); HEMOGLOBIN 8.3 GM/dL (10.7-15.3); MCH 28.1 pg (25.7-33.7); MCHC 33.2 g/dl (32.0-36.0); MEAN CELL VOLUME 84.6 fl (80-96); MEAN PLT VOLUME 8.9 fl (7.5-11.1); PLATELET COUNT 334 10^3/uL (134-434); RBC 2.97 M/mm3 (3.60-5.2); RDW 14.6 % (11.6-15.6); WHITE BLOOD COUNT 10.4 K/mm3 (4.0-10.0)
[2023-07-28 09:11] LABS: CALCIUM 8.5 mg/dL (8.5-10.1)
[2023-07-28 09:12] LABS: BLOOD UREA NITROGEN 13.9 mg/dL (7-18)
[2023-07-28 09:15] LABS: CREATININE 1.5 mg/dL (0.55-1.3)
[2023-07-29 11:20] LABS: HEMATOCRIT 25.6 % (32.4-45.2); HEMOGLOBIN 8.6 GM/dL (10.7-15.3); MCH 28.4 pg (25.7-33.7); MCHC 33.6 g/dl (32.0-36.0); MEAN CELL VOLUME 84.5 fl (80-96); MEAN PLT VOLUME 8.8 fl (7.5-11.1); PLATELET COUNT 343 10^3/uL (134-434); POTASSIUM 3.9 mmol/L (3.5-5.1); RBC 3.02 M/mm3 (3.60-5.2); RDW 14.5 % (11.6-15.6); WHITE BLOOD COUNT 7.7 K/mm3 (4.0-10.0)
[2023-07-29 11:28] LABS: BLOOD UREA NITROGEN 15.1 mg/dL (7-18)
[2023-07-29 11:31] LABS: CREATININE 1.5 mg/dL (0.55-1.3)
[2023-07-30 08:33] LABS: HEMATOCRIT 22.3 % (32.4-45.2); HEMOGLOBIN 7.7 GM/dL (10.7-15.3); MCHC 34.3 g/dl (32.0-36.0); MEAN CELL VOLUME 84.4 fl (80-96); MEAN PLT VOLUME 8.3 fl (7.5-11.1); PLATELET COUNT 315 10^3/uL (134-434); RBC 2.65 M/mm3 (3.60-5.2); RDW 14.8 % (11.6-15.6); WHITE BLOOD COUNT 6.3 K/mm3 (4.0-10.0)
[2023-07-30 08:34] LABS: POTASSIUM 3.8 mmol/L (3.5-5.1)
[2023-07-30 08:37] LABS: BLOOD UREA NITROGEN 11.6 mg/dL (7-18); CALCIUM 8.9 mg/dL (8.5-10.1)
[2023-07-30 08:41] LABS: CREATININE 1.3 mg/dL (0.55-1.3)
[2023-07-31 08:27] LABS: HEMATOCRIT 21.8 % (32.4-45.2); HEMOGLOBIN 7.4 GM/dL (10.7-15.3); MCH 28.7 pg (25.7-33.7); MCHC 33.9 g/dl (32.0-36.0); MEAN CELL VOLUME 84.5 fl (80-96); MEAN PLT VOLUME 8.5 fl (7.5-11.1); PLATELET COUNT 318 10^3/uL (134-434); RBC 2.58 M/mm3 (3.60-5.2); RDW 14.6 % (11.6-15.6); WHITE BLOOD COUNT 8.4 K/mm3 (4.0-10.0)
[2023-07-31 08:40] LABS: CALCIUM 8.4 mg/dL (8.5-10.1)
[2023-07-31 08:41] LABS: BLOOD UREA NITROGEN 10.8 mg/dL (7-18)
[2023-07-31 08:44] LABS: CREATININE 1.2 mg/dL (0.55-1.3)
[2023-08-01 08:46] LABS: HEMATOCRIT 21.8 % (32.4-45.2); HEMOGLOBIN 7.4 GM/dL (10.7-15.3); MCH 28.8 pg (25.7-33.7); MCHC 33.8 g/dl (32.0-36.0); MEAN CELL VOLUME 85.3 fl (80-96); MEAN PLT VOLUME 8.2 fl (7.5-11.1); PLATELET COUNT 367 10^3/uL (134-434); RBC 2.55 M/mm3 (3.60-5.2); RDW 14.5 % (11.6-15.6); WHITE BLOOD COUNT 10.3 K/mm3 (4.0-10.0)
[2023-08-01 09:14] LABS: POTASSIUM 4.1 mmol/L (3.5-5.1)
[2023-08-01 09:15] LABS: BLOOD UREA NITROGEN 9.9 mg/dL (7-18); CALCIUM 9.5 mg/dL (8.5-10.1)
[2023-08-01 09:18] LABS: CREATININE 1.2 mg/dL (0.55-1.3)
[2023-08-02 07:45] LABS: HEMATOCRIT 19.4 % (32.4-45.2); MCH 28.3 pg (25.7-33.7); MCHC 33.4 g/dl (32.0-36.0); MEAN CELL VOLUME 84.5 fl (80-96); MEAN PLT VOLUME 8.4 fl (7.5-11.1); PLATELET COUNT 329 10^3/uL (134-434); RDW 14.9 % (11.6-15.6); WHITE BLOOD COUNT 8.6 K/mm3 (4.0-10.0)
[2023-08-02 07:49] LABS: HEMOGLOBIN 6.5 GM/dL (10.7-15.3)
[2023-08-02 08:25] LABS: POTASSIUM 3.9 mmol/L (3.5-5.1)
[2023-08-02 08:33] LABS: CALCIUM 8.3 mg/dL (8.5-10.1)
[2023-08-02 08:34] LABS: BLOOD UREA NITROGEN 9.2 mg/dL (7-18)
[2023-08-02 08:36] LABS: CREATININE 1.1 mg/dL (0.55-1.3)
[2023-08-03 09:08] LABS: BASO % 0.2 % (0-2.0); HEMATOCRIT 27.3 % (32.4-45.2); HEMOGLOBIN 9.2 GM/dL (10.7-15.3); MCH 28.3 pg (25.7-33.7); MCHC 33.7 g/dl (32.0-36.0); MEAN PLT VOLUME 8.2 fl (7.5-11.1); MONO % 8.3 % (3.8-10.2); NEUT % 62.5 % (42.8-82.8); PLATELET COUNT 324 10^3/uL (134-434); RBC 3.24 M/mm3 (3.60-5.2); RDW 14.7 % (11.6-15.6); WHITE BLOOD COUNT 8.6 K/mm3 (4.0-10.0)
[2023-08-03 09:35] LABS: CALCIUM 8.6 mg/dL (8.5-10.1)
[2023-08-03 09:36] LABS: ALBUMIN 2.6 g/dl (3.4-5.0); BLOOD UREA NITROGEN 6.3 mg/dL (7-18); MAGNESIUM 1.7 mg/dL (1.8-2.4)
[2023-08-03 09:39] LABS: CREATININE 1.1 mg/dL (0.55-1.3)
[2023-08-03 09:40] LABS: BILIRUBIN,TOTAL 0.5 mg/dL (0.2-1)
[2023-08-03 09:41] LABS: TOT PROT 6.9 g/dl (6.4-8.2)
[2023-08-04 09:15] LABS: BASO % 0.2 % (0-2.0); HEMATOCRIT 25.2 % (32.4-45.2); HEMOGLOBIN 8.4 GM/dL (10.7-15.3); LYMPH % 14.2 % (8-40); MCH 28.3 pg (25.7-33.7); MCHC 33.5 g/dl (32.0-36.0); MEAN CELL VOLUME 84.7 fl (80-96); MEAN PLT VOLUME 8.7 fl (7.5-11.1); NEUT % 79.6 % (42.8-82.8); PLATELET COUNT 363 10^3/uL (134-434); RBC 2.98 M/mm3 (3.60-5.2); RDW 14.8 % (11.6-15.6); WHITE BLOOD COUNT 12.7 K/mm3 (4.0-10.0)
[2023-08-04 09:16] LABS: INR 1.13 (0.83-1.09); PROTHROMBIN TIME (PATIENT) 13.1 SEC (9.7-13.0)
[2023-08-04 09:36] LABS: POTASSIUM 4.1 mmol/L (3.5-5.1)
[2023-08-04 09:48] LABS: ALBUMIN 2.7 g/dl (3.4-5.0); BLOOD UREA NITROGEN 10.4 mg/dL (7-18); CALCIUM 8.6 mg/dL (8.5-10.1)
[2023-08-04 09:51] LABS: CREATININE 1.3 mg/dL (0.55-1.3)
[2023-08-04 09:53] LABS: BILIRUBIN,TOTAL 0.5 mg/dL (0.2-1); TOT PROT 7.2 g/dl (6.4-8.2)
[2023-08-04] MEDS: CEFTRIAXONE 1 GM in DEXTROSE 5%-WATER - 50 ML IVPB SCH (14:40)
[2023-08-05 08:50] LABS: BASO % 0.3 % (0-2.0); HEMATOCRIT 26.1 % (32.4-45.2); HEMOGLOBIN 8.8 GM/dL (10.7-15.3); LYMPH % 27.7 % (8-40); MCH 28.6 pg (25.7-33.7); MCHC 33.9 g/dl (32.0-36.0); MEAN CELL VOLUME 84.4 fl (80-96); MEAN PLT VOLUME 8.4 fl (7.5-11.1); MONO % 8.5 % (3.8-10.2); NEUT % 63.5 % (42.8-82.8); PLATELET COUNT 342 10^3/uL (134-434); RBC 3.09 M/mm3 (3.60-5.2); RDW 14.5 % (11.6-15.6); WHITE BLOOD COUNT 10.1 K/mm3 (4.0-10.0)
[2023-08-05 09:06] LABS: POTASSIUM 4.1 mmol/L (3.5-5.1)
[2023-08-05 09:09] LABS: ALBUMIN 2.6 g/dl (3.4-5.0); CALCIUM 8.7 mg/dL (8.5-10.1)
[2023-08-05 09:10] LABS: BLOOD UREA NITROGEN 11.6 mg/dL (7-18)
[2023-08-05 09:12] LABS: CREATININE 1.3 mg/dL (0.55-1.3)
[2023-08-05 09:14] LABS: BILIRUBIN,TOTAL 0.4 mg/dL (0.2-1)
[2023-08-05] MEDS ORDERED: ENOXAPARIN NA (PORCINE) 40 MG/0.4 ML DISP.SYRIN SQ SCH (14:00)
[2023-08-05 14:07] VITALS: RESP 18
[2023-08-06 12:17] LABS: BASO % 0.2 % (0-2.0); HEMATOCRIT 25.8 % (32.4-45.2); HEMOGLOBIN 8.9 GM/dL (10.7-15.3); LYMPH % 21.4 % (8-40); MCH 28.7 pg (25.7-33.7); MCHC 34.4 g/dl (32.0-36.0); MEAN CELL VOLUME 83.6 fl (80-96); MEAN PLT VOLUME 8.2 fl (7.5-11.1); MONO % 6.3 % (3.8-10.2); NEUT % 72.1 % (42.8-82.8); PLATELET COUNT 374 10^3/uL (134-434); RBC 3.08 M/mm3 (3.60-5.2); RDW 14.7 % (11.6-15.6); WHITE BLOOD COUNT 8.3 K/mm3 (4.0-10.0)
[2023-08-06 18:15] VITALS: BP 102/71; PULSE 74; TEMP 97.5
== END 2023-08-06 18:20 | disposition short-term general hospital (02) | DRG 441 ==
LOC: JER 10:27 → JERBED 16:53 → J4W 06-29 23:42 → OBSVTOIN 06-30 10:16 → J7W 06-30 20:54 → J4S 07-07 11:50 → J4W 07-13 19:06 → J4S 07-16 19:13
PROVIDERS: ADMIT Internal Medicine; ATTEND Nurse Practitioner Acute Care
PROC: 4A10X4Z Monitoring of Central Nervous Electrical Activity, External Approach (ICD-10-PCS; 2023-07-08)
PROC: 30233N1 Transfusion of Nonautologous Red Blood Cells into Peripheral Vein, Percutaneous Approach (ICD-10-PCS; 2023-07-13)
PROC: 0T9B80Z Drainage of Bladder with Drainage Device, Via Natural or Artificial Opening Endoscopic (ICD-10-PCS; 2023-07-20)
PROC: 0T7B8DZ Dilation of Bladder with Intraluminal Device, Via Natural or Artificial Opening Endoscopic (ICD-10-PCS; 2023-07-20)
PROC: 0TCB8ZZ Extirpation of Matter from Bladder, Via Natural or Artificial Opening Endoscopic (ICD-10-PCS; principal; 2023-07-20 16:30)
DX: N13.6 Pyonephrosis (principal); R55 Syncope and collapse; D50.9 Iron deficiency anemia, unspecified; I10 Essential (primary) hypertension; R31.9 Hematuria, unspecified; E05.90 Thyrotoxicosis, unspecified without thyrotoxic crisis or storm; B96.20 Unspecified Escherichia coli [E. coli] as the cause of diseases classified elsewhere; D63.8 Anemia in other chronic diseases classified elsewhere; K59.00 Constipation, unspecified; F19.10 Other psychoactive substance abuse, uncomplicated; F31.9 Bipolar disorder, unspecified; R47.01 Aphasia; R31.0 Gross hematuria; N93.9 Abnormal uterine and vaginal bleeding, unspecified; S09.90XA Unspecified injury of head, initial encounter; F10.10 Alcohol abuse, uncomplicated; N17.9 Acute kidney failure, unspecified; Z96.0 Presence of urogenital implants; W06.XXXA Fall from bed, initial encounter; Y93.89 Activity, other specified; Y92.230 Patient room in hospital as the place of occurrence of the external cause; Y99.8 Other external cause status; I69.351 Hemiplegia and hemiparesis following cerebral infarction affecting right dominant side; I69.322 Dysarthria following cerebral infarction; W19.XXXA Unspecified fall, initial encounter; Y92.129 Unspecified place in nursing home as the place of occurrence of the external cause
CPT/HCPCS: 0241U-QW; 36415; 36430; 36600; 70450-TC; 70480-TC; 70486-TC; 71045-TC-FY; 72125-TC; 74174-TC; 74176-TC; 74177-TC; 76000-TC-FY; 76775-TC; 76856-TC; 80048; 80053; 80061; 80164; 80307; 81003; 82272; 82550; 82607; 82728; 82746; 82803; 82962; 82977; 83010; 83540; 83550; 83615; 83735; 84100; 84443; 84484; 85025; 85027; 85045; 85610; 86850; 86880; 86900; 86901; 86922; 87040; 87086; 87186; 87635; 93005; 93010; 94760; 95816; 97116-GP; 97162-GP; 99285-25; C2617; G0378; J0131; J0878; P9038; P9058; Q9967

== ENCOUNTER 2023-10-04 12:03 | Inpatient (IN) | payer OTHER ==
[2023-10-04 13:06] LABS: EPI CELLS 2 /uL (0-25.1); HYALINE CASTS 2 /uL (0-3.1); URINE APPEARANCE TURBID; URINE BILIRUBIN 1+ (NEGATIVE); URINE COLOR RED; URINE GLUCOSE (UA) NEGATIVE (NEGATIVE); URINE KETONE NEGATIVE (NEGATIVE); URINE LEUK ESTERASE 1+ (NEGATIVE); URINE NITRITE POSITIVE (NEGATIVE); URINE PROTEIN 2+ (NEGATIVE); URINE RBC 37875 /uL (0-23.9); URINE UROBILINOGEN 0.2 mg/dL (0.2-1.0); URINE WBC 124 /uL (0-25.8)
[2023-10-04 13:41] LABS: BASO % 0.7 % (0-2.0); HEMATOCRIT 26.3 % (32.4-45.2); HEMOGLOBIN 8.6 GM/dL (10.7-15.3); LYMPH % 33.6 % (8-40); MCH 27.9 pg (25.7-33.7); MCHC 32.5 g/dl (32.0-36.0); MEAN CELL VOLUME 85.8 fl (80-96); MEAN PLT VOLUME 8.9 fl (7.5-11.1); MONO % 6.9 % (3.8-10.2); NEUT % 58.8 % (42.8-82.8); PLATELET COUNT 266 10^3/uL (134-434); RBC 3.06 M/mm3 (3.60-5.2); RDW 16.1 % (11.6-15.6); WHITE BLOOD COUNT 4.8 K/mm3 (4.0-10.0)
[2023-10-04 13:44] LABS: INR 1.05 (0.83-1.09); PROTHROMBIN TIME (PATIENT) 12.2 SEC (9.7-13.0)
[2023-10-04 14:17] LABS: URINE BACTERIA 11752 /uL (0-1359)
[2023-10-04 14:41] LABS: CALCIUM 9.2 mg/dL (8.5-10.1)
[2023-10-04 14:42] LABS: ALBUMIN 3.1 g/dl (3.4-5.0); BLOOD UREA NITROGEN 10.6 mg/dL (7-18)
[2023-10-04 14:45] LABS: CREATININE 0.8 mg/dL (0.55-1.3)
[2023-10-04 14:46] LABS: TOT PROT 7.5 g/dl (6.4-8.2)
[2023-10-04 14:47] LABS: BILIRUBIN,TOTAL 0.2 mg/dL (0.2-1)
[2023-10-04] MEDS: DAPTOMYCIN 500 MG in SODIUM CHLORIDE 50 ML IVPB ONE (22:01)
[2023-10-04] MEDS: LACTATED RINGERS SOLUTION 1,000 ML/1,000 ML INFUS.BAG IV SCH (22:24)
[2023-10-05 00:28] VITALS: BMI 25.7
[2023-10-05] MEDS: LABETALOL HCL 200 MG TABLET (FP) PO ONE (01:06)
[2023-10-05] MEDS: GABAPENTIN 300 MG CAPSULE PO SCH (01:06)
[2023-10-05] MEDS: SEVELAMER CARBONATE 800 MG TAB (FP) PO SCH ×2 (06:20→11:45)
[2023-10-05 09:10] LABS: HEMATOCRIT 23.4 % (32.4-45.2); HEMOGLOBIN 7.6 GM/dL (10.7-15.3); MCH 27.5 pg (25.7-33.7); MCHC 32.4 g/dl (32.0-36.0); MEAN CELL VOLUME 84.8 fl (80-96); MEAN PLT VOLUME 8.9 fl (7.5-11.1); PLATELET COUNT 246 10^3/uL (134-434); RBC 2.75 M/mm3 (3.60-5.2); RDW 15.7 % (11.6-15.6); WHITE BLOOD COUNT 4.3 K/mm3 (4.0-10.0)
[2023-10-05 09:23] LABS: POTASSIUM 3.7 mmol/L (3.5-5.1)
[2023-10-05 09:26] LABS: ALBUMIN 2.9 g/dl (3.4-5.0); CALCIUM 8.9 mg/dL (8.5-10.1)
[2023-10-05 09:27] LABS: BLOOD UREA NITROGEN 8.8 mg/dL (7-18); MAGNESIUM 1.8 mg/dL (1.8-2.4)
[2023-10-05 09:29] LABS: CREATININE 0.7 mg/dL (0.55-1.3)
[2023-10-05 09:30] LABS: PHOSPHOROUS 4.5 mg/dL (2.5-4.9)
[2023-10-05 09:31] LABS: BILIRUBIN,TOTAL 0.3 mg/dL (0.2-1); TOT PROT 6.9 g/dl (6.4-8.2)
[2023-10-05] MEDS: LOSARTAN POTASSIUM 25 MG TABLET PO SCH (10:03)
[2023-10-05] MEDS: LABETALOL HCL 200 MG TABLET (FP) PO SCH (10:03)
[2023-10-05] MEDS: METHIMAZOLE 5 MG TABLET PO SCH (10:03)
[2023-10-05] MEDS: FAMOTIDINE 20 MG TABLET PO SCH (10:03)
[2023-10-05] MEDS: CEFTRIAXONE 1 GM in DEXTROSE 5%-WATER - 50 ML IVPB ONE (10:03)
[2023-10-05] MEDS: amLODIPine BESYLATE 10 MG TABLET (FP) PO SCH (10:07)
[2023-10-05] MEDS: DULoxetine HCL 20 MG CAPSULE.DR PO SCH (11:42)
[2023-10-05] MEDS ORDERED: ONDANSETRON 4 MG/2 ML VIAL IVPUSH PRN (14:36)
[2023-10-05] MEDS: CALCIUM 500MG/VIT-D 200 UNITS COMBO TABLET (FP) PO SCH (17:12)
[2023-10-05] MEDS: FERROUS SO4 325 MG TABLET (FP) PO SCH (17:12)
[2023-10-05] MEDS: POLYETHYLENE GLYCOL (HEALTHYLAX) 3350 17 GM PACKET PO SCH (17:12)
[2023-10-05] MEDS ORDERED: DAPTOMYCIN 500 MG in SODIUM CHLORIDE 50 ML IVPB SCH (18:00)
[2023-10-05] MEDS: MELATONIN 5 MG TABLETS PO SCH (22:31)
[2023-10-05] MEDS: SENNOSIDES 8.6MG TABLET (FP) PO SCH (22:31)
[2023-10-06 08:23] LABS: HEMATOCRIT 23.6 % (32.4-45.2); HEMOGLOBIN 7.8 GM/dL (10.7-15.3); MCH 27.5 pg (25.7-33.7); MEAN CELL VOLUME 83.3 fl (80-96); MEAN PLT VOLUME 8.7 fl (7.5-11.1); PLATELET COUNT 222 10^3/uL (134-434); RBC 2.83 M/mm3 (3.60-5.2); RDW 16.1 % (11.6-15.6); WHITE BLOOD COUNT 4.3 K/mm3 (4.0-10.0)
[2023-10-06 08:29] LABS: POTASSIUM 3.8 mmol/L (3.5-5.1)
[2023-10-06 08:56] LABS: BLOOD UREA NITROGEN 10.5 mg/dL (7-18)
[2023-10-06 08:57] LABS: PHOSPHOROUS 4.7 mg/dL (2.5-4.9)
[2023-10-06 08:58] LABS: BILIRUBIN,TOTAL 0.3 mg/dL (0.2-1); TOT PROT 6.9 g/dl (6.4-8.2)
[2023-10-06 08:59] LABS: CREATININE 0.7 mg/dL (0.55-1.3)
[2023-10-06 09:00] LABS: CALCIUM 9.3 mg/dL (8.5-10.1); MAGNESIUM 1.9 mg/dL (1.8-2.4)
[2023-10-06] MEDS: CEFTRIAXONE 1 GM in DEXTROSE 5%-WATER - 50 ML IVPB SCH (10:16)
[2023-10-07 00:05] LABS: EPI CELLS >36 /uL (0-25.1); HYALINE CASTS 5 /uL (0-3.1); PH,URINE 8.5 (5.0-8.0); URINE APPEARANCE CLEAR; URINE BACTERIA 2 /uL (0-1359); URINE BILIRUBIN NEGATIVE (NEGATIVE); URINE COLOR RED; URINE GLUCOSE (UA) NEGATIVE (NEGATIVE); URINE KETONE NEGATIVE (NEGATIVE); URINE LEUK ESTERASE 1+ (NEGATIVE); URINE NITRITE NEGATIVE (NEGATIVE); URINE PROTEIN 3+ (NEGATIVE); URINE UROBILINOGEN 0.2 mg/dL (0.2-1.0); URINE WBC 115 /uL (0-25.8)
[2023-10-07 00:06] LABS: URINE RBC 52120.2 /uL (0-23.9)
[2023-10-07 09:06] LABS: HEMATOCRIT 23.8 % (32.4-45.2); HEMOGLOBIN 7.6 GM/dL (10.7-15.3); MCH 27.2 pg (25.7-33.7); MEAN CELL VOLUME 84.8 fl (80-96); MEAN PLT VOLUME 9.1 fl (7.5-11.1); PLATELET COUNT 251 10^3/uL (134-434); RBC 2.81 M/mm3 (3.60-5.2); RDW 15.9 % (11.6-15.6); WHITE BLOOD COUNT 4.3 K/mm3 (4.0-10.0)
[2023-10-07 09:08] LABS: BASO % 0.3 % (0-2.0); HEMATOCRIT 23.5 % (32.4-45.2); HEMOGLOBIN 7.4 GM/dL (10.7-15.3); LYMPH % 47.3 % (8-40); MCHC 31.6 g/dl (32.0-36.0); MEAN CELL VOLUME 85.4 fl (80-96); MEAN PLT VOLUME 8.8 fl (7.5-11.1); MONO % 6.4 % (3.8-10.2); PLATELET COUNT 264 10^3/uL (134-434); RBC 2.75 M/mm3 (3.60-5.2); RDW 15.9 % (11.6-15.6); RETICULOCYTES 1.65 % (0.5-1.5); WHITE BLOOD COUNT 4.4 K/mm3 (4.0-10.0)
[2023-10-07 09:28] LABS: CALCIUM 8.8 mg/dL (8.5-10.1)
[2023-10-07 09:29] LABS: MAGNESIUM 1.9 mg/dL (1.8-2.4)
[2023-10-07 09:30] LABS: ALBUMIN 2.9 g/dl (3.4-5.0); BLOOD UREA NITROGEN 12.4 mg/dL (7-18)
[2023-10-07 09:32] LABS: CREATININE 0.9 mg/dL (0.55-1.3)
[2023-10-07 09:32] LABS: EPI CELLS >36 /uL (0-25.1); HYALINE CASTS 5 /uL (0-3.1); PH,URINE 6.5 (5.0-8.0); URINE APPEARANCE TURBID; URINE BILIRUBIN 1+ (NEGATIVE); URINE COLOR RED; URINE GLUCOSE (UA) NEGATIVE (NEGATIVE); URINE KETONE NEGATIVE (NEGATIVE); URINE LEUK ESTERASE 2+ (NEGATIVE); URINE NITRITE POSITIVE (NEGATIVE); URINE PROTEIN 3+ (NEGATIVE); URINE RBC 49786 /uL (0-23.9); URINE UROBILINOGEN 0.2 mg/dL (0.2-1.0); URINE WBC 177 /uL (0-25.8)
[2023-10-07 09:35] LABS: BILIRUBIN,TOTAL 0.2 mg/dL (0.2-1)
[2023-10-07 10:00] LABS: URINE BACTERIA 0 /uL (0-1359)
[2023-10-08 09:43] LABS: HEMATOCRIT 26.3 % (32.4-45.2); HEMOGLOBIN 8.3 GM/dL (10.7-15.3); MCH 27.1 pg (25.7-33.7); MCHC 31.7 g/dl (32.0-36.0); MEAN CELL VOLUME 85.4 fl (80-96); MEAN PLT VOLUME 8.9 fl (7.5-11.1); PLATELET COUNT 251 10^3/uL (134-434); RBC 3.08 M/mm3 (3.60-5.2); RDW 15.5 % (11.6-15.6); WHITE BLOOD COUNT 4.2 K/mm3 (4.0-10.0)
[2023-10-08 10:17] LABS: BLOOD UREA NITROGEN 12.6 mg/dL (7-18); CALCIUM 9.7 mg/dL (8.5-10.1)
[2023-10-08 10:18] LABS: ALBUMIN 3.2 g/dl (3.4-5.0); MAGNESIUM 2.1 mg/dL (1.8-2.4)
[2023-10-08 10:21] LABS: BILIRUBIN,TOTAL 0.4 mg/dL (0.2-1); CREATININE 0.9 mg/dL (0.55-1.3); TOT PROT 7.6 g/dl (6.4-8.2)
[2023-10-09 09:20] LABS: HEMATOCRIT 26.3 % (32.4-45.2); HEMOGLOBIN 8.5 GM/dL (10.7-15.3); MCH 27.5 pg (25.7-33.7); MCHC 32.1 g/dl (32.0-36.0); MEAN CELL VOLUME 85.6 fl (80-96); MEAN PLT VOLUME 8.4 fl (7.5-11.1); PLATELET COUNT 251 10^3/uL (134-434); RBC 3.07 M/mm3 (3.60-5.2); WHITE BLOOD COUNT 4.4 K/mm3 (4.0-10.0)
[2023-10-09 09:48] LABS: POTASSIUM 3.9 mmol/L (3.5-5.1)
[2023-10-09 09:59] LABS: ALBUMIN 3.2 g/dl (3.4-5.0); BLOOD UREA NITROGEN 12.5 mg/dL (7-18); MAGNESIUM 1.7 mg/dL (1.8-2.4)
[2023-10-09 10:02] LABS: CREATININE 0.9 mg/dL (0.55-1.3)
[2023-10-09 10:03] LABS: TOT PROT 7.5 g/dl (6.4-8.2)
[2023-10-09 10:06] LABS: BILIRUBIN,TOTAL 0.5 mg/dL (0.2-1); PHOSPHOROUS 3.6 mg/dL (2.5-4.9)
[2023-10-09 11:11] LABS: ANISOCYTOSIS 2+; MACROCYTOSIS 0
[2023-10-10 12:09] LABS: BASO % 0.7 % (0-2.0); HEMOGLOBIN 8.1 GM/dL (10.7-15.3); MCH 27.2 pg (25.7-33.7); MCHC 32.3 g/dl (32.0-36.0); MEAN CELL VOLUME 84.3 fl (80-96); MEAN PLT VOLUME 8.8 fl (7.5-11.1); MONO % 9.1 % (3.8-10.2); NEUT % 47.2 % (42.8-82.8); PLATELET COUNT 253 10^3/uL (134-434); RBC 2.96 M/mm3 (3.60-5.2); RDW 16.4 % (11.6-15.6); WHITE BLOOD COUNT 4.5 K/mm3 (4.0-10.0)
[2023-10-10 12:59] LABS: PLATELET ESTIMATE ADEQUATE
[2023-10-10] MEDS: IRON SUCROSE INJECTION 200 MG in SODIUM CHLORIDE 100 ML IVPB ONE (17:57)
[2023-10-11 08:21] LABS: HEMATOCRIT 26.4 % (32.4-45.2); HEMOGLOBIN 8.6 GM/dL (10.7-15.3); MCH 27.3 pg (25.7-33.7); MCHC 32.5 g/dl (32.0-36.0); MEAN CELL VOLUME 84.1 fl (80-96); MEAN PLT VOLUME 8.2 fl (7.5-11.1); PLATELET COUNT 280 10^3/uL (134-434); RBC 3.15 M/mm3 (3.60-5.2); RDW 16.2 % (11.6-15.6)
[2023-10-11 08:37] LABS: POTASSIUM 3.8 mmol/L (3.5-5.1)
[2023-10-11 08:44] LABS: ALBUMIN 3.3 g/dl (3.4-5.0); CALCIUM 9.7 mg/dL (8.5-10.1)
[2023-10-11 08:45] LABS: BLOOD UREA NITROGEN 12.7 mg/dL (7-18); MAGNESIUM 1.9 mg/dL (1.8-2.4)
[2023-10-11 08:47] LABS: CREATININE 0.9 mg/dL (0.55-1.3); PHOSPHOROUS 4.1 mg/dL (2.5-4.9)
[2023-10-11 08:49] LABS: BILIRUBIN,TOTAL 0.1 mg/dL (0.2-1); TOT PROT 7.7 g/dl (6.4-8.2)
[2023-10-11] MEDS: ACETAMINOPHEN 325 MG TABLET (FP) PO PRN (09:08)
[2023-10-11 19:09] LABS: ANTIGLOMERULAR BASEMENT MEN.AB <0.2 units (0.0-0.9); C-ANCA <1:20 titer (Neg:<1:20)
[2023-10-12 08:47] LABS: HEMATOCRIT 28.3 % (32.4-45.2); HEMOGLOBIN 9.1 GM/dL (10.7-15.3); MCH 27.5 pg (25.7-33.7); MCHC 32.4 g/dl (32.0-36.0); MEAN CELL VOLUME 84.9 fl (80-96); MEAN PLT VOLUME 8.2 fl (7.5-11.1); PLATELET COUNT 321 10^3/uL (134-434); RBC 3.33 M/mm3 (3.60-5.2); RDW 16.6 % (11.6-15.6); WHITE BLOOD COUNT 4.6 K/mm3 (4.0-10.0)
[2023-10-12 09:13] LABS: POTASSIUM 3.8 mmol/L (3.5-5.1)
[2023-10-12 09:21] LABS: CALCIUM 9.7 mg/dL (8.5-10.1)
[2023-10-12 09:22] LABS: BLOOD UREA NITROGEN 14.5 mg/dL (7-18)
[2023-10-12 09:25] LABS: CREATININE 0.8 mg/dL (0.55-1.3)
[2023-10-12] MEDS ORDERED: METHIMAZOLE 5 MG TABLET PO SCH (10:00)
[2023-10-17] MEDS: FERROUS SO4 325 MG TABLET (FP) PO SCH (12:15)
[2023-10-17] MEDS: METHIMAZOLE 5 MG TABLET PO SCH (12:15)
[2023-10-18 08:31] LABS: BASO % 0.3 % (0-2.0); HEMATOCRIT 25.1 % (32.4-45.2); LYMPH % 45.1 % (8-40); MCH 27.8 pg (25.7-33.7); MCHC 32.1 g/dl (32.0-36.0); MEAN CELL VOLUME 86.5 fl (80-96); MEAN PLT VOLUME 8.6 fl (7.5-11.1); MONO % 7.4 % (3.8-10.2); NEUT % 47.2 % (42.8-82.8); PLATELET COUNT 222 10^3/uL (134-434); RDW 17.2 % (11.6-15.6)
[2023-10-18 09:02] LABS: BLOOD UREA NITROGEN 15.6 mg/dL (7-18); CALCIUM 9.4 mg/dL (8.5-10.1); CREATININE 0.8 mg/dL (0.55-1.3); POTASSIUM 3.9 mmol/L (3.5-5.1)
[2023-10-21 09:59] VITALS: RESP 18
[2023-10-21 16:08] VITALS: BP 157/84; PULSE 76; TEMP 98.3
== END 2023-10-21 18:08 | DRG 463 ==
LOC: JER 12:03 → JERBED 17:42 → OBSVTOIN 22:58 → J6S 23:15
PROVIDERS: ADMIT Internal Medicine; ATTEND Internal Medicine
DX: N39.0 Urinary tract infection, site not specified (principal); D62 Acute posthemorrhagic anemia; R53.2 Functional quadriplegia; R80.9 Proteinuria, unspecified; F31.9 Bipolar disorder, unspecified; N28.9 Disorder of kidney and ureter, unspecified; G81.91 Hemiplegia, unspecified affecting right dominant side; I69.320 Aphasia following cerebral infarction; I10 Essential (primary) hypertension; E05.90 Thyrotoxicosis, unspecified without thyrotoxic crisis or storm; B96.20 Unspecified Escherichia coli [E. coli] as the cause of diseases classified elsewhere; R31.0 Gross hematuria
CPT/HCPCS: 0241U-QW; 36415; 74177-TC; 80048; 80053; 80061; 81003; 82272; 82728; 83010; 83021; 83516; 83520; 83540; 83550; 83735; 84100; 84155; 84165; 84439; 84443; 85025; 85027; 85045; 85610; 85660; 85730; 86038; 86160; 86225; 86256; 87086; 87186; 87635; 93005; 93010; 97162-GP; 99285-25; G0378; J0878; J1756

== ENCOUNTER 2024-03-22 20:02 | Emergency (ER) | payer OTHER ==
[2024-03-22 20:24] VITALS: BMI 41.3
[2024-03-23 09:38] VITALS: BP 145/90; PULSE 65; RESP 20; TEMP 98.6
== END 2024-03-23 09:39 | disposition home or self-care (01) ==
LOC: JER 20:02
DX: M54.50 Low back pain, unspecified (principal); R53.1 Weakness; W19.XXXA Unspecified fall, initial encounter
CPT/HCPCS: 70450-TC; 71045-TC-FY; 72125-TC; 72170-TC-FY; 99284-25